=== PATIENT | female | born 1985 | race Two or more races ===

== ENCOUNTER 2022-05-06 03:22 | Emergency (ER) | payer OTHER, MEDICAID ==
[~2022-05-06] VITALS: Ht 160 cm; Wt 90.9 kg
[2022-05-06 04:04] VITALS: BP 150/95
[2022-05-06] MEDS ORDERED: ONDANSETRON HCL 4 MG/2 ML VIAL IM ONE (04:15)
[2022-05-06 04:25] LABS: Basophils # (auto) 0 10 ^3/uL (0-0.2); Basophils % (auto) 0.6 % (0.0-2.0); Eosinophils # (auto) 0.1 10 ^3/uL (0-0.8); Eosinophils % (auto) 1.4 % (0.0-7.0); Hemoglobin 14.2 g/dL (12.2-16.2); Lymphocytes # (auto) 2.4 10 ^3/uL (0.4-5.4); Lymphocytes % (auto) 28.8 % (10.0-50.0); Mean Corpuscular Hemoglobin 31.2 pg (28.0-32.0); Mean Corpuscular Hgb Conc. 34.6 g/dL (32.0-36.0); Mean Corpuscular Volume 90.3 fL (80.0-100.0); Monocytes # (auto) 0.4 10 ^3/uL (0-1.3); Monocytes % (auto) 4.9 % (0.0-12.0); Neutrophils # (auto) 5.5 10 ^3/uL (1.6-8.6); Neutrophils % (auto) 64.3 % (37.0-80.0); Red Blood Cells 4.54 10^6/uL (4.0-5.20); Red Cell Distribution Width 12.2 % (11.8-14.3); White Blood Cell 8.5 10^3/uL (4.4-10.8)
[2022-05-06 04:32] LABS: Albumin 3.8 g/dL (3.4-5.0); BUN/Creatinine Ratio 22.4; Calcium 9.5 mg/dL (8.5-10.1); Potassium 4.5 mmol/L (3.5-5.1)
[2022-05-06 04:35] LABS: Bilirubin, Total 0.5 mg/dL (0.2-1.0); Total Protein 8.5 g/dL (6.4-8.2)
[2022-05-06 06:45] LABS: Urine Bacteria NONE SEEN /hpf (None Seen); Urine Blood Negative /uL (Negative); Urine Mucus FEW (None Seen); Urine Specific Gravity 1.023 (1.001-1.035); Urine WBC 20 /hpf (0 - 5)
[2022-05-06] MEDS ORDERED: cefTRIAXone 1GM/50ML D5W 50 ML IV ONE (06:45)
[2022-05-06] MEDS ORDERED: AZITHROMYCIN 500MG/ 250ML 250 ML IV ONE (06:45)
[2022-05-06] MEDS ORDERED: ALBUAER3 IN (06:51)
[2022-05-06] MEDS ORDERED: ONDA-144 PO (06:51)
[2022-05-06] MEDS ORDERED: AZIT250T9 PO (06:51)
== END 2022-05-06 09:41 | disposition left against medical advice (07) ==
LOC: ER 03:26
DX: J18.9 Pneumonia, unspecified organism (principal)
CPT/HCPCS: 36415; 74176; 80053; 81001; 83690; 85025; 96372; 99284; J2405

== ENCOUNTER 2023-01-09 11:00 | Emergency (ER) | payer MEDICAID ==
[~2023-01-09] VITALS: Ht 162.6 cm; Wt 91.2 kg
[~2023-01-09 11:00] MED LIST: ALBUAER3 IN; AZIT-43 PO; ONDA-144 PO
[2023-01-09 11:08] VITALS: BP 159/95; PULSE 82; RESP 18; TEMP 97.8; O2SAT 96
[2023-01-09] MEDS ORDERED: KETOROLAC TROMETH 60MG/2ML VIAL IM ONE (12:00)
[2023-01-09] MEDS ORDERED: LORazepam 2MG/ML-1ML VIAL IM ONE ×2 (12:15→14:00)
[2023-01-09] MEDS ORDERED: CYCL-839 PO (14:35)
[2023-01-09] MEDS ORDERED: IBUP-1456 PO (14:35)
[2023-01-09] MEDS ORDERED: HYDR25CA PO (14:35)
== END 2023-01-09 15:01 | disposition home or self-care (01) ==
LOC: ER 11:00
DX: F41.9 Anxiety disorder, unspecified (principal); R68.84 Jaw pain; M62.838 Other muscle spasm; E03.9 Hypothyroidism, unspecified; Z79.2 Long term (current) use of antibiotics; Z79.899 Other long term (current) drug therapy
CPT/HCPCS: 70140; 96372; 99284; J2060; 70487

== ENCOUNTER 2023-10-01 16:03 | Emergency (ER) | payer MEDICAID ==
[~2023-10-01] VITALS: Ht 160 cm; Wt 92.8 kg
[~2023-10-01 16:03] MED LIST changes: +CYCL-839 PO; +HYDR25CA PO; +IBUP-1456 PO
[2023-10-01 16:15] VITALS: BP 122/81; PULSE 61; RESP 18; O2SAT 96
[2023-10-01] MEDS ORDERED: PROCHLORPERAZINE 25 MG RECTAL SUPP PR ONE (16:45)
[2023-10-01 17:14] LABS: Alanine Aminotransferase 138 U/L (7-40); Alkaline Phosphatase 109 U/L (46-116); Anion Gap 9 (5-15); Aspartate Aminotransferase 36 U/L (13-40); BUN/Creatinine Ratio 7.5 (10.0-20.0); Blood Urea Nitrogen 7 mg/dL (9-23); Calcium 9.6 mg/dL (8.7-10.4); Carbon Dioxide 25 mmol/L (20-30); Chloride 102 mmol/L (98-107); Glucose 144 mg/dL (74-106); Potassium 3.1 mmol/L (3.5-5.1); Sodium 136 mmol/L (136-145)
[2023-10-01 17:15] LABS: Albumin 4.4 g/dL (3.2-4.8); Bilirubin, Total 0.3 mg/dL (0.2-1.0); Total Protein 7.4 g/dL (5.7-8.2)
[2023-10-01 17:18] LABS: Hematocrit 42.2 % (36.0-46.0); Hemoglobin 14.4 g/dL (12.2-16.2); Mean Corpuscular Hemoglobin 30.2 pg (28.0-32.0); Mean Corpuscular Hgb Conc. 34.1 g/dL (32.0-36.0); Mean Corpuscular Volume 88.6 fL (80.0-100.0); Red Blood Cells 4.76 10^6/uL (4.0-5.20); Red Cell Distribution Width 12.3 % (11.8-14.3); White Blood Cell 22.3 10^3/uL (4.4-10.8)
[2023-10-01 17:20] LABS: Lactic Acid w/Reflex 3.8 mmol/L (0.4-2.0)
[2023-10-01 17:22] LABS: Band Neutrophils % (manual) 0; Basophils % (manual) 0 (0.0-2.0); Blast Cells 0; Eosinophils % (manual) 0 (0-7); Metamyelocytes % 0; Myelocytes % 0; Promyelocytes % 0; Reactive Lymphocytes 0
[2023-10-01] MEDS: SODIUM CHLORIDE 0.9% 1,000 ML IV ONE (18:17)
[2023-10-01] MEDS: PROCHLORPERAZINE EDISYLATE 5 MG/ML 2ML VIAL IV ONE (18:17)
[2023-10-01 18:31] LABS: Lymphocytes % (manual) 9 (10.0-50.0); Monocytes % (manual) 24 (0-12); Platelet Estimate Adequate
[2023-10-01] MEDS: ALPRAZolam 0.5 MG TAB PO ONE (18:45)
== END 2023-10-01 18:55 | disposition left against medical advice (07) ==
LOC: ER 16:08
DX: K92.1 Melena (principal); R10.84 Generalized abdominal pain; E07.9 Disorder of thyroid, unspecified; E66.01 Morbid (severe) obesity due to excess calories; Z68.36 Body mass index [BMI] 36.0-36.9, adult; Z51.11 Encounter for antineoplastic chemotherapy; Z85.3 Personal history of malignant neoplasm of breast
CPT/HCPCS: 36415; 80053; 83605; 85007; 85027; 96361; 96374; 99283; J0780; J7030